=== PATIENT | male | born 1970 | race Caucasian/White ===

== ENCOUNTER → 2019-08-04 | Outpatient (CLI) | payer BC ==
[~2019-08-04] MED LIST: RT-ALBUTEROL SULF 2.5 MG/3 ML PRE-MIX VIAL INH ONE
== END ==
LOC: RT 15:39
PROVIDERS: ATTEND Family Medicine
DX: J44.9 Chronic obstructive pulmonary disease, unspecified (principal)
CPT/HCPCS: 94060; 94726; 94729

== ENCOUNTER → 2020-05-24 | Outpatient (CLI) | payer BC ==
--- NOTE | 2020-05-24 11:32 | Diagnostic Imaging Report ---
INDICATION: COPD. TIME OF EXAM: 11:21 a.m. COMPARISON: No prior studies are available for comparison. FINDINGS: Heart size is normal. Lungs are hyperinflated consistent with COPD. No infiltrates are detected. There is no effusion or pneumothorax. IMPRESSION: COPD. No acute feature is identified. Dictated by: Dictated on workstation # [id number]
== END ==
LOC: RAD 10:47
PROVIDERS: ATTEND Family Medicine
DX: J44.9 Chronic obstructive pulmonary disease, unspecified (principal)
CPT/HCPCS: 71046